=== PATIENT | male | born 1975 | race Two or more races ===

== ENCOUNTER 2022-09-16 17:59 | Inpatient (IN) ==
[2022-09-16 20:49] LABS: ABS Eosinophils 0.5 10^3/uL (0.0-0.5); ABS Lymphocytes 1.5 10^3/uL (1.0-4.8); ABS Monocytes 0.8 10^3/uL (0.0-1.1); ABS Neutrophils 2.8 10^3/uL (1.5-7.6); ABS Nucleated RBC 0.01 10^3/ul; Eosinophil % 9.5 %; Hematocrit 41.2 % (38-53); Lymphocyte % 26.1 %; Mean Corpuscular Hemoglobin 30.4 pg (27-33); Mean Corpuscular Volume 89.4 fL (80-97); Mean Platelet Volume 8.2 fL (7.5-11.2); Nucleated Red Blood Cells % 0.2 /100 WBC (0.0-0.4); Platelet Count 254 10^3/uL (150-450); Red Blood Count 4.61 10^6/uL (4.06-5.63); Red Cell Distribution Width 14.1 % (12-17); White Blood Count 5.6 10^3/uL (3.6-10.2)
[2022-09-16 21:05] LABS: INR 1.01 (0.88-1.18)
[2022-09-16] MEDS ORDERED: cefTRIAXone 1 gm/50 mL D5W 1 GM/50 ML BAG IV ONE (21:07)
[2022-09-16] MEDS ORDERED: metroNIDAZOLE IV 500 MG/100ML 500 MG/100 ML BAG IVPB ONE (21:07)
[2022-09-16] MEDS ORDERED: NS 0.9% 1000 ml BAG 1,000 ML IV ONE (21:08)
[2022-09-16 21:30] LABS: Albumin 3.9 g/dL (3.2-5.2); Albumin/Globulin Ratio 1.1 (1-3); Alkaline Phosphatase 220 U/L (35-149); Anion Gap 7 mmol/L (2-16); Blood Urea Nitrogen 13 mg/dL (6-24); CO2 Carbon Dioxide 26 mmol/L (22-32); Calcium 9.1 mg/dL (8.6-10.3); Chloride 104 mmol/L (101-111); Creatinine, Serum 0.88 mg/dL (0.67-1.17); Globulin 3.5 g/dL (2-4); Glucose 98 mg/dL (70-100); Potassium 3.9 mmol/L (3.5-5.0); Sodium 137 mmol/L (135-145); Total Protein 7.4 g/dL (6.4-8.9); eGFR CKD-EPI 105.4 (>60)
[2022-09-16 21:54] LABS: ALT 2817 U/L (7-52); AST 1317 U/L (13-39)
[2022-09-16 21:57] LABS: Hepatitis B Surface Antigen Positive (Nonreactive)
[2022-09-16 22:02] LABS: Hepatitis A Ab IgM Negative (Negative)
[2022-09-16 22:03] LABS: Hepatitis B Core IgM Reactive (Nonreactive)
[2022-09-16 22:15] LABS: Hepatitis C Antibody Negative (Negative)
[2022-09-16 22:30] LABS: C Reactive Protein 7.87 mg/L (<8.01)
[2022-09-16] MEDS ORDERED: Thiamine 100 MG/ML 2 ml VIAL (200 mg) IM ONE (23:30)
[2022-09-17] MEDS: Multivitamins/Minerals TAB PO SCH ×2 (00:13→11:08)
[2022-09-17 01:19] LABS: HIV 4th Generation Nonreactive (Nonreactive)
[2022-09-17 02:12] LABS: Acetaminophen < 15 mcg/mL; Alcohol, S < 13 mg/dL (<13)
[2022-09-17 06:37] LABS: ABS Eosinophils 0.5 10^3/uL (0.0-0.5); ABS Monocytes 0.7 10^3/uL (0.0-1.1); ABS Neutrophils 2.2 10^3/uL (1.5-7.6); Eosinophil % 10.9 %; Hematocrit 39.8 % (38-53); Hemoglobin 13.5 g/dL (13.2-16.3); Lymphocyte % 23.5 %; Mean Corpuscular Hemoglobin 30.8 pg (27-33); Mean Corpuscular Volume 90.7 fL (80-97); Mean Platelet Volume 7.9 fL (7.5-11.2); Nucleated Red Blood Cells % 0.1 /100 WBC (0.0-0.4); Platelet Count 245 10^3/uL (150-450); Red Blood Count 4.39 10^6/uL (4.06-5.63); Red Cell Distribution Width 14.3 % (12-17); White Blood Count 4.4 10^3/uL (3.6-10.2)
[2022-09-17 07:35] LABS: Albumin 3.5 g/dL (3.2-5.2); Albumin/Globulin Ratio 1.1 (1-3); Calcium 8.6 mg/dL (8.6-10.3); Creatinine, Serum 0.79 mg/dL (0.67-1.17); Globulin 3.2 g/dL (2-4); Potassium 3.9 mmol/L (3.5-5.0); Total Bilirubin 4.1 mg/dL (0.2-1.0); Total Protein 6.7 g/dL (6.4-8.9); eGFR CKD-EPI 108.9 (>60)
[2022-09-17] MEDS: metroNIDAZOLE IV 500 MG/100ML 500 MG/100 ML BAG IVPB SCH ×2 (08:10→14:59)
[2022-09-17] MEDS ORDERED: Pantoprazole VIAL 40 MG VIAL IV SCH (09:00)
[2022-09-17 12:32] VITALS: BP 113/71
[2022-09-17] MEDS ORDERED: cefTRIAXone 1 gm/50 mL D5W 1 GM/50 ML BAG IV SCH ×2 (21:00)
[2022-09-18 13:32] LABS: EBV Capsid Ag IgG Ab Positive (Negative); EBV Capsid Ag IgM Ab Negative (Negative); Epstein-Barr Nuclear Antigen Positive (Negative)
[2022-09-18 14:12] LABS: Hepatitis Be Antigen Positive (Negative)
[2022-09-18 17:21] LABS: Hepatitis Be Antibody Positive (Negative)
[2022-09-18 21:26] LABS: Hepatitis B DNA Quantitative 2060000 IU/mL (Undetected)
== END 2022-09-17 16:25 | disposition home or self-care (01) | DRG 443 ==
LOC: ED 17:59 → EDHOLD 22:36 → SUATTDRO 22:36 → MED 09-17 12:35
PROVIDERS: ADMIT Student in an Organized Health Care Education/Training Program; ATTEND Internal Medicine